=== PATIENT | male | born 1960 | race Caucasian/White ===

== ENCOUNTER 2016-11-30 13:10 | Emergency (ER) | payer BC ==
[~2016-11-30] VITALS: Ht 188 cm; Wt 133.8 kg
--- NOTE | ~2016-11-30 | EKG ---
[address] [place] [address] ELECTROCARDIOGRAM REPORT Name: SIMI BYRD Room #: REG KATELYN Cabezas#: [id number] Admission: 11/30/16 Attend Phys: Discharge: Date of : 62 Report #: [id number] THIS REPORT FOR: //name// [facility] ED Test Date: 2016-11-30 Test Time: 13:50:22 Pat Name: SIMI BYRD Department: Room: Gender: Pet Care Technician: Brendon ADDISON : 1960 Requested By: Ranjeet Tillman Order Number: [id number] MD: Espinoza Dahl Measurements Intervals [place] Rate: 92 P: 21 LA: 158 QRS: 23 QRSD: 98 T: 22 QT: 367 QTc: 455 Interpretive Statements Sinus rhythm No previous ECG available for comparison Electronically Signed On 11-30-2016 15:45:40 CDT by Espinoza Dahl [email or web address] <ELECTRONICALLY SIGNED> By: Espinoza Dahl MD 11/30/16 1545 1350 1350 Espinoza Dahl MD /EPI
[2016-11-30] MEDS ORDERED: NEURONTIN 300300 M1 PO ×2 (13:26→13:27)
[2016-11-30] MEDS ORDERED: LISINOPRIL-HCT1 EAC2 PO (13:26)
[2016-11-30] MEDS ORDERED: PROZAC20 MG PO (13:27)
[2016-11-30] MEDS ORDERED: CINNAMON500 MG PO (13:28)
[2016-11-30] MEDS ORDERED: EFFEXOR XR37.5 MG PO (13:28)
[2016-11-30] MEDS ORDERED: OMEPRAZOLE 20 M20 M1 PO (13:28)
[2016-11-30] MEDS ORDERED: GINKGO60 MG PO (13:29)
[2016-11-30] MEDS ORDERED: NOVOLOG100 UNIT/1 SUBQ (13:32)
[2016-11-30] MEDS ORDERED: TOUJEO SOL300 UNIT/1 SUBQ (13:33)
[2016-11-30] MEDS ORDERED: VICTOZA0.6 MG/0.1 SUBQ (13:34)
[2016-11-30 13:56] LABS: ANION GAP 6 mmol/L (7-16); BUN 21 mg/dL (7-18); CALCIUM 9.1 mg/dL (8.5-10.1); CHLORIDE 101 mmol/L (98-107); CO2 27 mmol/L (21-32); CREATININE 1.3 mg/dL (0.7-1.3); GLUCOSE 251 mg/dL (74-106); POTASSIUM 3.7 mmol/L (3.5-5.1); SODIUM 134 mmol/L (136-145)
[2016-11-30 14:00] LABS: ABSOLUTE NEUTROPHILS 4.8 thou/uL (1.4-8.2); BASOPHILS 0.8 % (0.0-2.0); EOSINOPHILS 2.5 % (0.0-3.0); HEMATOCRIT 36.5 % (42.0-52.0); HEMOGLOBIN 12.3 gm/dL (14.0-18.0); LYMPHOCYTES 26.5 % (24.0-44.0); MCH 27.8 pg (26.0-34.0); MCHC 33.6 g/dL (28.0-37.0); MCV 82.6 fL (80.0-100.0); MONOCYTES 8.5 % (1.0-8.0); PLATELET COUNT 279 thou/uL (150-400); POLYS 61.7 % (36.0-66.0); RBC 4.42 mil/uL (4.50-6.00); RDW 13.7 % (10.5-14.5); WBC 7.8 thou/uL (4.0-11.0)
[2016-11-30 14:01] LABS: MANUAL DIFF NO
[2016-11-30 14:06] LABS: TROPONIN-I < 0.04 ng/mL (<0.04-0.07)
[2016-11-30 16:07] VITALS: BP 123/71
== END 2016-11-30 16:08 | disposition home or self-care (01) ==
LOC: ER 13:10
PROVIDERS: Nurse Practitioner
DX: R51 Headache (principal); R07.89 Other chest pain; E78.5 Hyperlipidemia, unspecified; E11.9 Type 2 diabetes mellitus without complications; F32.9 Major depressive disorder, single episode, unspecified; Z79.4 Long term (current) use of insulin